=== PATIENT | male | born 1960 | race Caucasian/White ===

== ENCOUNTER 2018-09-29 11:45 | Emergency (ER) | payer BC ==
[2018-09-29] MEDS ORDERED: NS 1,000 ML IV ONE (12:05)
--- NOTE | 2018-09-29 12:06 | EDPHY ---
HPI/HX/ROS/PE/MDM Narrative: CHIEF COMPLAINT: Asymptomatic, hypertension HPI: The patient is a 58 y/o male with a history of hypertension arriving at the recommendation of his PCP for hypertension and an abnormal EKG during a routine follow up appointment today. He denies any symptoms and mentions he intended to go running today. He takes Losartan and hasn't missed doses or changed his diet or caffeine intake recently. He mentions he has been fasting since 19:00 last night in preparation for lab work this morning. REVIEW OF SYSTEMS: A comprehensive 10 system review of systems is otherwise negative aside from elements mentioned in the history of present illness. PMH: Hypertension - Losartan SOCIAL HISTORY: , is ill. Avid commercial leasing agent. Employed. PHYSICAL EXAM: General:Patient is alert, in no acute distress. BP 202/102 ENT:Eyes are normal to inspection. ENT inspection normal. Neck: Normal inspection. Full range of motion. Respiratory:No respiratory distress. Breath sounds normal bilaterally. Cardiovascular: Regular rate and rhythm. Strong peripheral pulses. Normal cap refill. Abdomen:The abdomen is nontender to palpation. There are no peritoneal signs. Back: Normal to inspection. No tenderness to palpation. Skin: Normal color. No rash. Warm and dry. Extremities: Normal appearance. Full range of motion. Neuro: Oriented x3. Normal motor function. Normal sensory function. (Victor Manuel Brown) ED Course: This is a 58 y/o male with a history of hypertension who presents asymptomatic at the recommendation of his PCP for hypertension around 200 systolic and abnormal finding on outpatient EKG. His exam is unremarkable apart from hypertension at 202/102. Plan for IV, labs, EKG. The 12 lead EKG was interpreted by myself. See hard copy and/or "tracemaster" electronic copy for interpretation. 1335: Repeat BP is now 150/91. Reassessed patient and discussed findings. Recommended following up with english language learner tutor. Consulted with cardiology. They will see patient in their office tomorrow at 10am, but would like an echo performed in the ED today prior to that appointment. I've ordered this. (Victor Manuel Brown) 3:40 p.m.- Patient's echocardiogram has been read by Dr. Rodriguez. He has mild concentric LVH consistent with hypertensive disease. He has a follow-up appointment tomorrow. He is currently asymptomatic and will be discharged home. (Khushi Clements) - Data Points Laboratory Results: Laboratory Results 09/29/18 12:05 09/29/18 12:05 09/29/18 09/29/18 09/29/18 12:17 12:05 12:05 WBC 4.34 10^3/uL 10^3/uL (3.80-9.50) RBC 4.99 10^6/uL 10^6/uL (4.40-6.38) Hgb 15.8 g/dL g/dL (13.7-17.5) Hct 45.4 % % (40.0-51.0) MCV 91.0 fL fL (81.5-99.8) MCH 31.7 pg pg (27.9-34.1) MCHC 34.8 g/dL g/dL (32.4-36.7) RDW 12.4 % % (11.5-15.2) Plt Count 143 10^3/uL L 10^3/uL (150-400) MPV 10.5 fL fL (8.7-11.7) Neut % (Auto) 58.5 % % (39.3-74.2) Lymph % (Auto) 30.4 % % (15.0-45.0) Josephine % (Auto) 8.8 % % (4.5-13.0) Eos % (Auto) 1.4 % % (0.6-7.6) Baso % (Auto) 0.7 % % (0.3-1.7) Nucleat RBC Rel Count 0.5 % H % (0.0-0.2) Absolute Neuts (auto) 2.54 10^3/uL 10^3/uL (1.70-6.50) Absolute Lymphs (auto) 1.32 10^3/uL 10^3/uL (1.00-3.00) Absolute Monos (auto) 0.38 10^3/uL 10^3/uL (0.30-0.80) Absolute Eos (auto) 0.06 10^3/uL 10^3/uL (0.03-0.40) Absolute Basos (auto) 0.03 10^3/uL 10^3/uL (0.02-0.10) Absolute Nucleated RBC 0.02 10^3/uL H 10^3/uL (0-0.01) Immature Gran % 0.2 % % (0.0-1.1) Immature Gran # 0.01 10^3/uL 10^3/uL (0.00-0.10) Sodium 142 mEq/L mEq/L (135-145) Potassium 4.0 mEq/L mEq/L (3.5-5.2) Chloride 106 mEq/L mEq/L (97-110) Carbon Dioxide 27 mEq/l mEq/l (22-31) Anion Gap 9 mEq/L mEq/L (6-14) BUN 22 mg/dL mg/dL (7-23) Creatinine 1.0 mg/dL mg/dL (0.7-1.3) Estimated GFR > 60 Glucose 92 mg/dL mg/dL (70-100) Calcium 9.6 mg/dL mg/dL (8.5-10.4) POC Troponin I 0.01 ng/mL ng/mL (0.00-0.08) Medications Given: Discontinued Medications Sodium Chloride (Ns) 1,000 mls @ 0 mls/hr IV EDNOW ONE; Wide Open PRN Reason: Protocol Stop: 09/29/18 12:06 Last Admin: 09/29/18 12:30 Dose: 1,000 mls Point of Care Test Results: Chemistry 09/29/18 12:17 POC Troponin I 0.01 ng/mL ng/mL (0.00-0.08) General Time Seen by Provider: 09/29/18 11:51 Initial Vital Signs: Initial Vital Signs Temperature (C) 36.7 C 09/29/18 11:54 Heart Rate 51 L 09/29/18 11:54 Respiratory Rate 16 09/29/18 11:54 Blood Pressure 202/102 H 09/29/18 11:54 O2 Sat (%) 99 09/29/18 11:54 O2 Delivery Mode Room Air Allergies/Adverse Reactions: amoxicillin [Amoxicillin] Allergy (Mild, Verified 09/29/18 11:52) Vomiting Home Medications: Medication Instructions Recorded Dorzolamide HCl 09/29/18 Latanoprost 09/29/18 Losartan Potassium 09/29/18 Timolol 09/29/18 Departure - Departure Disposition: Home, Routine, Self-Care Clinical Impression: Hypertension Qualifiers: Hypertension type: unspecified Qualified Code(s): I10 - Essential (primary) hypertension Condition: Good Instructions: Hypertension (ED) Additional Instructions: Follow up with Dr. Lewis, english language learner tutor, tomorrow at his office at 10am. Arrive early to this appointment. Return to the ED for any worsening of condition. Referrals: Prasad Ahmadi [Primary Care Provider] - As per Instructions Carlos Manuel Lewis MD [Medical Doctor] - As per Instructions Report Scribed for: Victor Manuel Brown Report Scribed by: Enma Escamilla Date of Report: 09/29/18 Time of Report: 12:07 Physician Review and Approval Statement: Portions of this note were transcribed by an ED scribe. I personally performed the history, physical exam, and medical decision making; and confirm the accuracy of the information in the transcribed note.
[2018-09-29 12:35] LABS: PLATELET COUNT 143 10^3/uL (150-400)
--- NOTE | 2018-09-29 15:44 | ECHO ---
[email or web address] [address] Main: [phone] Fax: [email or web address] Echocardiogram Name: JOSÉ MIGUEL DAILEY MR#: [id number] Study Date: 09/29/2018 Study Time: 02:28 PM Date of : 1960 Age: 58 year(s) Height: 193 cm (76 in.) Weight: 75.75 kg (167 lb.) BSA: 2.05 m2 Gender: Male Examination: Echo Indication: eval cardiac function, lvh Image Quality: Adequate Contrast: Requested by: Victor Manuel Brown BP: 150 mmHg/91 mmHg Heart Rate: Rhythm: Indication: eval cardiac function, lvh Procedure Staff [employer] Operator: Catherine Alejandro RDCS Reading Physician: Geoff Rodriguez MD Requesting Provider: Conclusions: Normal size left ventricle. Mild concentric LV hypertrophy. Normal global systolic LV function. The ejection fraction is visually estimated to be 60 %. Normal RV function. The left atrium is normal in size. The right atrium is normal in size. The mitral valve is normal in appearance and function. Mild mitral valve regurgitation is present. The aortic valve is tri-leaflet. No aortic valve stenosis is present. The tricuspid valve is normal in appearance and function. Mild tricuspid regurgitation is present. The pulmonary artery pressure is normal. The pulmonic valve is normal in appearance and function. There is no pulmonic regurgitation seen. Normal size aortic root measuring 3.0 cm. Normal size ascending aorta measuring 2.7 cm. The IVC is normal sized. No pericardial effusion. The patient has a normal LV systolic function with mild concentric LVH consistent with early hypertensive heart disease. No other significant findings. A prior study is not available for comparison. Measurements: Chambers Valvular Assessment AV/MV Valvular Assessment TV/PV Normal Normal Normal Name Value Range Name Value Range Name Value Range TR Vmax: 1.64 mm/s ( - ) Patient: JOSÉ MIGUEL DAILEY Study Date: 09/29/2018 Page 1 of 3 02:28 PM Ao Shayy (2D): 3.0 cm (1.4 cm-2.6 AV Vmax: 1.64 m/s (1 m/s-1.7 TR PGmax: 11 mmHg ( - ) cm) m/s) syst. PAP: 16 mmHg ( - ) IVSd (2D): 1.3 cm (0.6 cm-1.1 AV maxP mmHg ( - ) PV Vmax: 0.95 m/s (0.6 m/s-0.9 cm) AV meanP mmHg ( - ) m/s) LVDd (2D): 4.9 cm (4.2 cm-5.9 LVOT Vmax: 1.05 m/s (0.7 m/s-1.1 PV PGmax: 4 mmHg ( - ) cm) m/s) LVDs (2D): 3.2 cm (2.1 cm-4 JOSE MARIA (Vmax): 2.2 cm2 ( - ) cm) JOSE MARIA (VTI): 2.0 cm ( - ) LVPWd (2D): 1.3 cm (0.6 cm-1 MV E Vmax: 0.63 m/s ( - ) cm) MV A Vmax: 0.63 m/s ( - ) LVOTd 2.1 cm 2.1 cm mm MV E/A: 1.00 ( - ) LVEF (BP): 65 % (>=55 %) MV PHT: 0.080 s ( - ) Visual EF: 60 % MVA (PHT): 2.8 s ( - ) RVDd(2D): 3.1 cm (1.9 cm-3.8 cmmm) Continued Measurements: Chambers Valvular Assessment AV/MV Valvular Assessment TV/PV Name Value Name Value Name Value LADs: 3.4 cm MV DecTime: 239 m/s CVP (est.): 5 mmHg LADs Lon.9 cm MV E/E' Septal: 7.30 LA Area: 17.1 cm2 MV E/E' Lateral: 5.50 LA Volume: 50 ml LA Volume Index: 24.4 ml/m2 RA Area: 23.9 cm2 Additional Vessels Name Value Ao Ascendin.7 cm Inferior Vena Cava: 2.2 cm Findings: Left Ventricle: Normal size left ventricle. Mild concentric LV hypertrophy. Normal global systolic LV function. The ejection fraction is visually estimated to be 60 %. No regional wall motion abnormality. Normal diastolic LV function. Right Ventricle: Normal size right ventricle. Normal RV function. Left Atrium: The left atrium is normal in size. Right Atrium: The right atrium is normal in size. Mitral Valve: The mitral valve is normal in appearance and function. Mild mitral valve regurgitation is present. No mitral stenosis is present. Aortic Valve: The aortic valve is tri-leaflet. Trivial aortic valve regurgitation. No aortic valve stenosis is present. Tricuspid Valve: The tricuspid valve is normal in appearance and function. Mild tricuspid regurgitation is present. The pulmonary artery pressure is normal. Right ventricular systolic pressure measures 16mmHg. Pulmonic Valve: The pulmonic valve is normal in appearance and function. There is no pulmonic regurgitation seen. Aorta: The aorta is normal. Normal size aortic root measuring 3.0 cm. Normal size ascending aorta measuring 2.7 cm. IVC: The IVC is normal sized. Pericardium: No pericardial effusion. Patient: JOSÉ MIGUEL DAILEY Study Date: 09/29/2018 Page 2 of 3 02:28 PM (No Signature Object) Patient: JOSÉ MIGUEL DAILEY Study Date: 09/29/2018 Page 3 of 3 02:28 PM [id number]
[2018-09-29 16:22] VITALS: BP 148/94
== END 2018-09-29 16:24 | disposition home or self-care (01) ==
DX: I10 Essential (primary) hypertension (principal)
CPT/HCPCS: 84484-ER

== ENCOUNTER → 2018-10-20 | Outpatient (CLI) | payer BC | LOC: FIMAGING 09:58 | PROVIDERS: ATTEND Internal Medicine Cardiovascular Disease | DX: I10 Essential (primary) hypertension (principal) ==